=== PATIENT | female | born 1980 | race Caucasian/White ===

== ENCOUNTER 2020-06-05 12:23 | Outpatient (NON) | payer BC, SELFPAY ==
[2020-06-05 21:43] LABS: SARS-CoV-2 RNA PCR Negative
== END 2020-06-05 12:24 ==
PROVIDERS: PCP Family Medicine; Visit Provider Physician Assistant
DX: Z20.828 Contact with and (suspected) exposure to other viral communicable diseases (principal); R50.9 Fever, unspecified
CPT/HCPCS: 87635; C9803; U0003

== ENCOUNTER → 2021-04-23 02:49 | Outpatient (CLI) | payer OTHER, SELFPAY ==
[2021-04-23 20:44] LABS: SARS-CoV-2 RNA PCR Negative
== END ==
PROVIDERS: PCP Family Medicine; Visit Provider Family Medicine
DX: J06.9 Acute upper respiratory infection, unspecified (principal); Z20.822 Contact with and (suspected) exposure to COVID-19
CPT/HCPCS: C9803; U0003; U0005

== ENCOUNTER → 2023-04-13 12:10 | Outpatient (CLI) | payer OTHER, SELFPAY ==
--- NOTE | ~2023-04-13 | XR_ITS ---
XR thoracic spine 3V DATE: 04/13/2023 13:27 INDICATION: Back pain TECHNIQUE: AP, lateral, swimmer views COMPARISON: None FINDINGS: Mild thoracic levoscoliosis. Minimal degenerative spurring of the thoracic spine. No fracture or dislocation or bone destruction. The thoracic pedicles are intact. No paraspinal soft tissue thickening. IMPRESSION: Mild thoracic levoscoliosis Minimal degenerative spurring Reviewed, dictated and finalized at location B.
--- NOTE | ~2023-04-13 | XR_ITS ---
EXAM: XR_CERV2-3V_CR DATE: 04/13/2023 13:26 HISTORY: M54.2 - Cervicalgia . COMPARISON: None available. FINDINGS: Craniocervical association and atlantoaxial joint are aligned. No prevertebral soft tissue swelling. Vertebral bodies are aligned. Vertebral body heights are maintained. Normal disc spaces. N ormal facets and posterior elements. IMPRESSION: Unremarkable cervical spine radiograph findings. Reviewed, dictated and finalized at location K.
== END ==
PROVIDERS: PCP Physician Assistant Medical; Visit Provider Physician Assistant Medical
DX: M54.2 Cervicalgia (principal)
CPT/HCPCS: 72040; 72072

== ENCOUNTER 2024-06-04 17:36 | Outpatient (CLI) | payer OTHER, SELFPAY ==
[2024-06-04 18:11] LABS: Hematocrit 42.6 % (37.0-47.0); Hemoglobin 13.6 g/dL (12.0-15.0); Mean Corpuscular HGB Conc 31.9 g/dl (32-36); Mean Corpuscular Hemoglobin 30.1 pg (26-34); Mean Corpuscular Volume 94.2 fl (80-100); Platelet Count Result 522 k/mm3 (150-375); Red Blood Count 4.52 M/mm3 (4.2-5.4); Red Cell Distribution Width 13.5 % (11.5-14.5); White Blood Count 8.3 K/mm3 (4.5-10.0)
[2024-06-04 18:27] LABS: Albumin Level 4.2 g/dL (3.5-5.1); Anion Gap 8 mmol/L (4-12); Blood Urea Nitrogen 8 mg/dL (7-17); Calcium 8.9 mg/dL (8.4-10.2); Carbon Dioxide 24 mmol/L (22-30); Chloride 105 mmol/L (98-107); Estimated Glomerular Filt Rate > 60; Glucose 89 mg/dL (65-110); Potassium 3.5 mmol/L (3.4-5.0); Sodium 137 mmol/L (137-145)
[2024-06-04 18:34] LABS: Prealbumin 21.7 mg/dL (17.6-36.0)
[2024-06-04 18:55] LABS: Iron 46 ug/dL (37-170)
[2024-06-04 19:01] LABS: Hemoglobin A1C 4.9 % (<5.7)
[2024-06-09 15:58] LABS: Vitamin B1 7 nmol/L (8-30)
== END 2024-06-04 17:37 | disposition home or self-care (01) ==
LOC: ANHLAB 17:39
PROVIDERS: PCP Family Medicine; Visit Provider Surgery Plastic and Reconstructive Surgery
DX: R63.4 Abnormal weight loss (principal)
CPT/HCPCS: 36415; 80048; 82040; 83036; 83540; 84134; 84425; 85027

== ENCOUNTER 2024-07-04 09:24 | Outpatient (CLI) | payer OTHER, SELFPAY ==
--- NOTE | 2024-07-04 09:49 | ECG_ITS ---
Test Date: 2024-07-04 09:55:53 Measurements Intervals [place] Rate: 75 P: 45 SC: 139 QRS: 40 QRSD: 105 T: 45 QT: 369 QTc: 413 Interpretive Statements SINUS RHYTHM WITH SINUS ARRHYTHMIA BASELINE ARTIFACT- I, II, III, AVR, AVL, AVF, V1 NORMAL ECG No previous ECG available for comparison Electronically Signed On 07-04-2024 10:23:31 [employer] by Ryan Hernandez D.O.
== END 2024-07-04 09:25 | disposition home or self-care (01) ==
PROVIDERS: PCP Family Medicine; Visit Provider Surgery Plastic and Reconstructive Surgery
DX: Z01.818 Encounter for other preprocedural examination (principal); Z41.1 Encounter for cosmetic surgery
CPT/HCPCS: 93005

== ENCOUNTER 2024-07-10 00:07 | Day surgery (SDC) | payer OTHER, SELFPAY ==
[2024-07-03 12:52] VITALS: BMI 26.4
--- NOTE | 2024-07-03 12:53 | PC.NURSE ---
Report to the Outpatient Waiting Room, entrance under the green pavilion located off [facility], at time _0700_ on date _[id number]_. Planned Procedure Time: _0900_.? Time changes happen often and if your time is changed the preop area will call you the afternoon before. - You and your visitor will be asked to self-screen and do not enter if you have any COVID symptoms. Please call surgeon if you need to reschedule. - A mask is optional within the hospital at this time. Patients may have clear liquids (water, carbonated beverages, clear teas, apple juice) until 3 hours prior to surgery with a maximum of 20 ounces. - No food from midnight until time of surgery and no smoking. This includes no chewing gum, candy or mints. Take only the following medications with a SIP of water on the morning of surgery: __None____ DO NOT STOP ANY OF YOUR OTHER PRESCRIPTION MEDICATIONS PRIOR TO SURGERY EXCEPT THE FOLLOWING Medications to discontinue per physician ___Vitamin Date to take last izmu___[id number]__ Please no make-up, nail macedonian, hairspray, perfume, deodorant, or body powder the day of surgery.? No jewelry (including any body piercings) or valuables the day of surgery, leave them at home.? Please take a shower or bath the night before, or the morning of, surgery with an antibacterial soap.? Wear comfortable, loose fitting clothing.? - Jewelry must be removed prior to entering the operating room.? Rings and piercings that are not removed may be cut off. - The hospital will not accept responsibility for valuables.? - Please leave all valuables, including medications, at home the day of surgery. If you are going home after surgery, a licensed hook up driver must drive you home.? - NO public transportation without another adult if you receive anesthesia. - We recommend that an adult stay with you for 24 hours following discharge. - We also recommend that you do not drive, make important decision, drink alcoholic beverages, or take any drugs that were not prescribed by your health care provider for at least 24 hours after your discharge time. Follow any additional instructions given to you from your surgeon. Telephone instructions given to __Dean__and asked if any additional questions and then verbalized understanding. Patient advised to call surgeon office or pre surgery nurse liaison [phone] if any additional questions.
[2024-07-10] VITALS (10 sets, daily range): BP systolic 94–129; BP diastolic 52–77; PULSE 72–117; RESP 12–16; TEMP 36.1–36.9; O2SAT 97–100
[2024-07-10] MEDS: LACTATED RINGERS 1,000 ML 30 ML IV CONT ×3 (07:00→17:09)
[2024-07-10 07:36] LABS: Urine Cotinine NEGATIVE
[2024-07-10] MEDS: SCOPOLAMINE 1 MG PATCH 1 PATCH TRANSDERM (08:30)
--- NOTE | 2024-07-10 08:36 | WPDHPUPDATE1 ---
History and Physical Update Update Date/Time: 07/10/24 08:36 History and Physical has been reviewed, including an updated exam of the patient. There are NO changes in the patient's condition. Risks, benefits, and alternatives have been discussed and questions answered. Patient agrees to proceed with procedure.
--- NOTE | 2024-07-10 08:37 | P.OP_ITS ---
Procedure Note - Detailed Date of Procedure 07/10/24 Pre-op Diagnosis Skin Laxity Post-op Diagnosis Same Procedure Performed [id number] belt lipectomy with suction lipectomy Surgeon Cosme Woodard MD Anesthesia General Findings Tissue removed: 3,258.3 grams Lipoaspirate: 2,500 cc Description of Procedure They are here today for the above procedures. Previously and again today the risks, benefits, alternatives were discussed in extensive detail. I wanted them to be very realistic about the risks involved as well as expectations. We discussed aftercare and what to monitor for. I was very upfront about the risks of wound breakdown leading to loss of skin, open wounds, and need for additional procedures with permanent abdominal deformity. We discussed DVT/PE risks and management. Her PCP agreed with proceeding with post-operative Lovenox. Made sure answered all of their questions to their satisfaction today and consent was obtained. They were marked in the preoperative holding area with their verification. The patient was taken to the operating room. Anesthesia was provided by anesthesiology. A Stevens catheter was started. Posterior Placed prone on the operating room table with care taken to protect from injury. Prepped and draped in a standard sterile fashion. A surgical time-out was taken. Stab incisions were made and tumescent solution was infiltrated. Once adequate time was allowed for hemostasis a 5mm basket and 4mm ezequiel cannula were utilized to complete suction lipectomy based on S.A.F.E. technique in multiple planes and passes. Suction lipectomy continued to result based on pre-operative planning, intra-operative observation, and rolling pinch test which were in full agreement. A 10 blade was used to make the upper incision and dissection was continued inferior elevating what we necessary for closure. I placed patient in slight jackknife position and excised intervening tissue. This was closed with 3 point suture with 2-0 Vicryl followed 2-0 PDO strattafix, 3-0 stratafix ,running subcuticular 4-0 Monocryl, and tissue glue. Laterally victor m were placed for turning. Anterior Patient was then placed supine with care taken to protect from injury. I placed the patient in a flexed position to verify the upper and lower markings would reach. I then placed supine. A thorough abdominal examination was completed. Stab incisions were made and tumescent solution infiltrated. Stab incisions were made and tumescent solution was infiltrated. Once adequate time was allowed for hemostasis a 5mm basket and 4mm ezequiel cannula were utilized to complete suction lipectomy based on S.A.F.E. technique in multiple planes and passes. Suction lipectomy continued to result based on pre-operative planning, intra-operative observation, and rolling pinch test which were in full agreement. A 10 blade was used to make the upper incision as well as vertical excision. I continued dissection down to the level of fascia. Elevated just what was nec essary for repair of the diastasis. I then again flexed the bed to verify the upper skin flap would reach the lower markings without tension. Once verified I placed her supine once again and a 10 blade used to make the lower incision. I elevated up to level the umbilicus and left the umbilicus intact on a well- vascularized stalk. The intervening tissue was removed. A 2 mm blunt cannula with 0.5% bupivacaine was injected deep to the fascia bilaterally. I plicated the diastasis recti using 0 PDO Stratafix barbed suture. This was in 2 separate layers using 2 separate sutures as well. After the patient was flexed (below) plicated the fascia with 0 PDO Stratafix in two separate layers. This was supraumbilical and infraumbilical. The patient was flexed and starting from superior to inferior began plication using 2-0 Vicryl to obliterate all space in a standard progressive tension fashion. At the umbilicus I marked out the location of the skin and inset this with 3-0 Monocryl and 4-0 Vicryl. I continued the remainder of the plication using 2-0 Vicryl until I reached my lower planned scar line. I trimmed any excess skin of the upper flap making sure this was a tension-free closure. 15 Noe drain was placed. I then approximated using a 3 point suture with 2-0 Vicryl followed by 2-0 PDO Stratafix, 3-0 Stratafix ,running subcuticular 4-0 Monocryl, and tissue glue. Fluffs and an abdominal binder were placed. The patient was transferred to the bed in a flexed position. [place] and taken to the PACU without difficulty. All instrument and sponge counts were correct at the end of the case. Estimated Blood Loss 150 Drains Yes (15 Noe) Packing No Pathology None sent Complications No immediate complications Condition Stable Disposition PACU
--- NOTE | 2024-07-10 08:45 | P.PNAN_ITS ---
Anes - Initial Pre Proc Eval Procedure: Operation Date: 07/10/24 09:00 Proposed Procedures p Sadaf de Lis Abdominoplasty, Belt Lipectomy with Liposuction - Cosme Woodard MD Date/Time: 07/10/24 08:45 Surgeon: Cosme Woodard MD Pre Op Diagnosis: Skin Laxity Patient Data Age: 43 Gender: F Height: 1.55 m Weight: 63.6 kg Allergies Allergy/AdvReac Type Severity Reaction Status Date / Time Penicillins Allergy Mild Hives / Verified 07/03/24 12:46 Red Face amoxicillin Allergy Unknown Unknown Verified 07/03/24 12:46 Home Medications Medication Instructions Recorded Confirmed Type topiramate 50 mg tablet 50 mg PO BID #60 tabs 03/23/24 07/03/24 Rx pantoprazole 40 mg tablet,delayed See Rx Instructions .Route 05/18/24 07/03/24 Rx release .COMPLEX #30 tabs ddyokeyfxpnj-Se-gefv-minerals 27 1 tablet PO DAILY 07/03/24 07/03/24 History mg-0.4 mg tablet Laboratory Tests 07/10/24 07:04 Cotinine Negative Patient hx anesthesia problems: none Family hx anesthesia problems: none Results Review: All pre-operative results and documents have been reviewed as part of the pre- operative evaluation. [facility] Past Medical History Medical History Dermatitis, dyshidrotic GERD (gastroesophageal reflux disease) Migraine Mood disorder Surgical History Surgical History H/O: hysterectomy Family History Family History Mother Patient's mother is in good health Sibling No problems noted. Social History Social History Smoking status: Never smoker Second hand tobacco smoke exposure: No Alcohol intake: current Alcohol use details: seldom; socially Substance use: never Substance use type: does not use Lack of Transportation: No Lack of Food: Never True Current Housing: I Have Housing Concerned About Future Housing: No Difficulty Paying Gas/Electric Bills: No Difficulty Paying for Meds: No Currently Unemployed: No Education: Bachelor's Degree Difficulty w/ Childcare or Family Care: No Living arrangements: with family Gender identity (if verbalized by the patient): Female Spiritual care concerns: No Agree to blood products: Yes Shaynas - Radha Final PreProcedure Day of Procedure 07/10/24 08:45 Patient weight: overweight Heart: regular rate and rhythm Lungs: clear to auscultation Airway: Mallampati scale and special considerations (Many upper caps in place. None loose. ) Neurological: alert and oriented Last oral intake: >/= 8 hours ASA classification: II Emergent: no Anesthetic plan: proceed Anesthesia type and monitoring: general ETT and standard monitoring Results Review: All pre-operative results and documents have been reviewed as part of the pre- operative evaluation. Pt w overall good functional status. Informed Consent: The patient's anesthetic plan and its attendant risks and benefits were discussed with the patient/family/POA. Questions were solicited and answers provided to the satisfaction of the patient/family/POA.
[2024-07-10] MEDS: ceFAZolin 2 GM/D5W 50 ML 2 GM/50 ML BAG IVPB (08:51)
[2024-07-10] MEDS: TRANEXAMIC ACID 1,000MG/ISO100 1,000 MG/100 ML BAG 200 MG IVPB (09:13)
[2024-07-10] MEDS: LACTATED RINGERS IRRIG 1,000 ML, LIDOCAINE HCL 1% LOCAL INJ 50 ML, EPINEPHrine HCL INJ ... INFILTRATE (09:43)
[2024-07-10] MEDS: BUPIVACAINE/EPINEPHRINE 0.5% 50 ML VIAL 60 ML INFILTRATE (10:46)
[2024-07-10] MEDS: ceFAZolin SODIUM 1 GM VIAL 2 GM IV PUSH (13:26)
[2024-07-10] MEDS: fentaNYL CITRATE INJ (*CRX) 100 MCG/2 ML VIAL 25 MCG IV PUSH ×2 (15:26→15:33)
[2024-07-10] MEDS: ONDANSETRON INJ 4 MG/2 ML VIAL IV PUSH (16:11)
== END 2024-07-10 17:34 | disposition home or self-care (01) ==
PROVIDERS: PCP Family Medicine; Visit Provider Surgery Plastic and Reconstructive Surgery
PROC: (CPT 15830; principal; 2024-07-10 09:00)
DX: Z41.1 Encounter for cosmetic surgery (principal); L57.4 Cutis laxa senilis; F32.A Depression, unspecified; K21.9 Gastro-esophageal reflux disease without esophagitis; F39 Unspecified mood [affective] disorder; R63.4 Abnormal weight loss; Z68.29 Body mass index [BMI] 29.0-29.9, adult; Z98.890 Other specified postprocedural states
CPT/HCPCS: 15830; 15847; 15877; 80307; A9270; J0171; J0690; J1100; J1171; J2003; J2250; J2405; J2704; J3010; J7120